=== PATIENT | female | born 1955 | race Caucasian/White ===

== ENCOUNTER 2017-07-31 11:23 | Emergency (ER) | payer OTHER ==
[2017-07-31 14:49] VITALS: BP 142/58
[2017-07-31] MEDS ORDERED: Tetracaine 0.5% OPTH.SOL 4 ML* 1 DROP BTL LEFT EYE ONE (15:01)
[2017-07-31] MEDS ORDERED: Eye Irrigation Solution 30 ML BOTTLE LEFT EYE ONE (15:01)
[2017-07-31] MEDS ORDERED: Fluorescein Sodium TOPICAL* 1 MG TEST OPHTHALMIC ONE (15:02)
--- NOTE | 2017-07-31 15:19 | UC ---
Eye Complaint HPI - HPI Summary HPI Summary: Pt c/o sudden onset of left eye pain. Pt denies injury, FB, discharge or swelling. - History of Current Complaint Chief Complaint: UCEye Stated Complaint: EYE COMPLAINT Time Seen by Provider: 07/31/17 14:36 Hx Obtained From: Patient ?: No Onset/Duration: Sudden Onset, Lasting Hours, Still Present Timing: Constant Severity Initially: Mild Severity Currently: Mild Pain Intensity: 2 Location of Injury: Eye Lid (upper) Character: Sharp, Dull Aggravating Factor(s): Nothing Alleviating Factor(s): Nothing Associated Signs And Symptoms: Positive: Drainage (Clear) - Risk Factors Penetrating Injury Risk Factor: Negative Globe Rupture Risk Factors: Negative Acute Glaucoma Risk Factors: Negative Optic Artery Occlusion Risk Factors: Negative - Allergies/Home Medications Allergies/Adverse Reactions: Allergies Allergy/AdvReac Type Severity Reaction Status Date / Time No Known Allergies Allergy Verified 07/31/17 14:36 Home Medications: Home Medications Levothyroxine TAB* [Synthroid 75 MCG TAB*] 75 mcg PO DAILY 07/31/17 [History Confirmed 07/31/17] PMH/Surg Hx/FS Hx/Imm Hx Previously Healthy: Yes Endocrine History: Thyroid Disease - Surgical History Surgical History: None Surgery Procedure, Year, and Place: left leg fx with plates and screws - Family History Known Family History: Positive: Cardiac Disease - Social History Occupation: Retired Lives: With Family Alcohol Use: Weekly Alcohol Amount: 4-5 Substance Use Type: None Smoking Status (MU): Former Smoker Have You Smoked in the Last Year: No When Did the Patient Quit Smoking/Using Tobacco: 1980s - Immunization History Most Recent Tetanus Shot: unknown Review of Systems Constitutional: Negative Skin: Negative Eyes: Blurred Vision - intermittent, Drainage - clear, Other - eye pain ENT: Negative Respiratory: Negative Cardiovascular: Negative Gastrointestinal: Negative Genitourinary: Negative Motor: Negative Neurovascular: Negative Musculoskeletal: Negative Neurological: Negative Psychological: Negative Is Patient Immunocompromised?: No All Other Systems Reviewed And Are Negative: Yes Physical Exam Triage Information Reviewed: Yes Appearance: Well-Appearing Vital Signs: Initial Vital Signs Temp 99.3 F 07/31/17 14:38 Pulse 62 07/31/17 14:38 Resp 18 07/31/17 14:38 BP 142/58 07/31/17 14:38 Pulse Ox 99 02/05/18 14:38 Vital Signs Reviewed: Yes Eye Exam: Other - no FB found with fluorocein stain, no corneal abrasion. Eyes: Positive: Conjunctiva Clear, Other: - mile swelling of lef jonathan eye lid ENT Exam: Normal Neck exam: Normal Respiratory Exam: Normal Cardiovascular Exam: Normal Musculoskeletal Exam: Normal Neurological Exam: Normal Psychological Exam: Normal Skin Exam: Normal Eye Complaint Course/Dx - Course Course Of Treatment: I discussed with the patient the consideration of shingles. Pt's eye exam did not reveal any abnormality. Pt c/o pain first, history of chicken pox and mild swelling of upper eye lid. No vessicles present. Pt was instructed to see her eye car eproviser as soon as possible. - Differential Dx/Diagnosis Differential Diagnosis/HQI/PQRI: Conjunctivitis, Corneal Abrasion, Foreign Body , Other - shingles Provider Diagnoses: left eye pain Discharge - Discharge Plan Condition: Stable Disposition: HOME Prescriptions: ValACYclovir (*) [Valtrex 1 GM(*)] 1 gm PO Q8H #21 tab Patient Education Materials: Eye Pain (ED) Referrals: Philip DAVIS,Tony Mabry [Primary Care Provider] - If Needed James Calderon MD [Medical Doctor] - As Soon As Possible
== END 2017-07-31 15:31 | disposition home or self-care (01) ==
LOC: UCCORT 11:23
DX: H57.12 Ocular pain, left eye (principal); Z87.891 Personal history of nicotine dependence
CPT/HCPCS: 99212; A9270-GY; G0463

== ENCOUNTER 2019-04-02 07:04 | Emergency (ER) | payer OTHER ==
[2019-04-02 07:37] VITALS: BP 152/65
--- NOTE | 2019-04-02 08:06 | UC ---
Respiratory Complaint HPI - HPI Summary HPI Summary: cough x 5 days cough is productive with yellow / green sputum + nasal congestion , pnd, no fever, no chills, no chest pain no sob cough is worse at night, worse with deep breathing - History of Current Complaint Chief Complaint: UCGeneralIllness Stated Complaint: COUGH X 4 DAYS Time Seen by Provider: 04/02/19 07:28 Hx Obtained From: Patient ?: No Onset/Duration: Gradual Onset, Lasting Days - 5, Still Present Timing: Constant Severity Initially: Moderate Severity Currently: Moderate Pain Intensity: 3 Pain Scale Used: 0-10 Numeric Character: Cough: Nonproductive Aggravating Factors: Exertion, Deep Breaths Associated Signs And Symptoms: Positive: URI, Nasal Congestion - Allergies/Home Medications Allergies/Adverse Reactions: Allergies Allergy/AdvReac Type Severity Reaction Status Date / Time No Known Allergies Allergy Verified 04/02/19 07:37 Home Medications: Home Medications FLUoxetine CAP* [PROzac CAP*] 10 mg PO DAILY 04/02/19 [History Confirmed ] PMH/Surg Hx/FS Hx/Imm Hx Endocrine History: Thyroid Disease - Surgical History Surgical History: Yes Surgery Procedure, Year, and Place: left leg fx with plates and screws - Family History Known Family History: Positive: Cardiac Disease - Social History Alcohol Use: Occasionally Alcohol Amount: 4-5 Substance Use Type: None Smoking Status (MU): Former Smoker Have You Smoked in the Last Year: No When Did the Patient Quit Smoking/Using Tobacco: 1980s - Immunization History Most Recent Tetanus Shot: unknown Review of Systems All Other Systems Reviewed And Are Negative: Yes Constitutional: Positive: Chills, Fatigue Skin: Positive: Negative Eyes: Positive: Negative ENT: Positive: Nasal Discharge, Sinus Congestion Respiratory: Positive: Cough. Negative: Shortness Of Breath Cardiovascular: Positive: Negative Is Patient Immunocompromised?: No Physical Exam Triage Information Reviewed: Yes Appearance: Well-Appearing, No Pain Distress, Well-Nourished Vital Signs: Initial Vital Signs Temp 98.2 F 04/02/19 07:30 Pulse 66 04/02/19 07:30 Resp 18 04/02/19 07:30 BP 152/65 04/02/19 07:30 Pulse Ox 98 04/02/19 07:30 Vital Signs Reviewed: Yes Eye Exam: Normal Eyes: Positive: Conjunctiva Clear ENT: Positive: Normal ENT inspection, Hearing grossly normal, Pharynx normal Neck: Positive: Supple, Nontender, No Lymphadenopathy Respiratory: Positive: Chest non-tender, Lungs clear, Normal breath sounds Cardiovascular: Positive: RRR, No Murmur, Pulses Normal Skin Exam: Normal Respiratory Course/Dx - Differential Dx/Diagnosis Provider Diagnosis: Viral bronchitis Discharge ED - Sign-Out/Discharge Documenting (check all that apply): Patient Departure All imaging exams completed and their final reports reviewed: No Studies - Discharge Plan Condition: Stable Disposition: HOME Prescriptions: guaiFENesin/CODIEN 100MG-10MG* [Robitussin AC 100Mg-10Mg*] 10 ml PO Q8H PRN # 120 ml MDD 30 ml PRN Reason: Cough Patient Education Materials: Acute Bronchitis (ED) Referrals: Tony Palacios PA [Primary Care Provider] - - Billing Disposition and Condition Condition: STABLE Disposition: Home
== END 2019-04-02 07:57 | disposition home or self-care (01) ==
LOC: UCCORT 07:04
DX: J20.8 Acute bronchitis due to other specified organisms (principal); E07.89 Other specified disorders of thyroid; Z87.891 Personal history of nicotine dependence
CPT/HCPCS: 99212; G0463

== ENCOUNTER 2019-07-01 08:27 | Emergency (ER) | payer OTHER ==
[2019-07-01 09:10] VITALS: BP 152/69
--- NOTE | 2019-07-01 09:44 | UC ---
Respiratory Complaint HPI - HPI Summary HPI Summary: 64 yo woman with a one week hx of sore throat, now resolved, and cough. Has no fever, shortness of breath or chest pain, but is unable to sleep the night through due to cough. Using Dayquil and Nyquil regularly. Feels fatigued. - History of Current Complaint Chief Complaint: UCRespiratory Stated Complaint: COUGH Time Seen by Provider: 07/01/19 09:35 Hx Obtained From: Patient Onset/Duration: Gradual Onset, Lasting Days Timing: Intermittent Episodes Severity Initially: Mild Severity Currently: Mild Pain Intensity: 0 Character: Cough: Productive Aggravating Factors: Recumbent Position Alleviating Factors: OTC Meds Associated Signs And Symptoms: Positive: URI. Negative: Dyspnea, Fever, Chills , Wheezing - Risk Factors Pulmonary Embolism Risk Factors: Negative Cardiac Risk Factors: Negative Pseudomonas Risk Factors: Negative Tuberculosis Risk Factors: Negative - Allergies/Home Medications Allergies/Adverse Reactions: Allergies Allergy/AdvReac Type Severity Reaction Status Date / Time No Known Allergies Allergy Verified 07/01/19 09:05 Home Medications: Home Medications Diphenhydram/PE/Dm/Acetamin/GG [MUCINEX FAST-MAX DAY/NIGH (Tablet)] 2 mis PO ONCE PRN 07/01/19 [History Confirmed 07/01/19] PMH/Surg Hx/FS Hx/Imm Hx Endocrine History: Hypothyroidism Psychological History: Anxiety - Surgical History Surgical History: Yes Surgery Procedure, Year, and Place: left leg fx with plates and screws - Family History Known Family History: Positive: Cardiac Disease, Other - mother has dementia - Social History Occupation: Retired Lives: With Family Alcohol Use: Weekly Alcohol Amount: 4-5 Substance Use Type: None Smoking Status (MU): Former Smoker Have You Smoked in the Last Year: No When Did the Patient Quit Smoking/Using Tobacco: 1980s - Immunization History Most Recent Tetanus Shot: unknown Review of Systems All Other Systems Reviewed And Are Negative: Yes Constitutional: Positive: Fatigue. Negative: Fever Skin: Positive: Negative Eyes: Positive: Negative ENT: Positive: Sore Throat Respiratory: Positive: Cough. Negative: Shortness Of Breath Cardiovascular: Negative: Palpitations, Chest Pain Gastrointestinal: Positive: Negative Genitourinary: Positive: Negative Motor: Positive: Negative Neurovascular: Positive: Negative Musculoskeletal: Positive: Negative Neurological: Positive: Negative Psychological: Positive: Negative Is Patient Immunocompromised?: No Physical Exam Triage Information Reviewed: Yes Appearance: Well-Appearing, No Pain Distress Vital Signs: Initial Vital Signs Temp 98.6 F 07/01/19 09:06 Pulse 61 07/01/19 09:06 Resp 16 07/01/19 09:06 BP 152/69 07/01/19 09:06 Pulse Ox 96 07/01/19 09:06 Eyes: Positive: Conjunctiva Clear ENT: Positive: Pharynx normal, TMs normal Neck: Positive: Supple, Nontender, No Lymphadenopathy Respiratory: Positive: Lungs clear, Normal breath sounds, No respiratory distress Cardiovascular: Positive: RRR, No Murmur Musculoskeletal Exam: Normal Neurological Exam: Normal Psychological Exam: Normal Skin Exam: Normal Respiratory Course/Dx - Course Course Of Treatment: Continue symptomatic treatment of viral URI. Cough suppressant for night use. - Differential Dx/Diagnosis Differential Diagnosis/HQI/PQRI: Bronchitis, Influenza, Lower Resp Infection, Sinusitis, Other - URI Provider Diagnosis: URI, acute Discharge ED - Sign-Out/Discharge Documenting (check all that apply): Patient Departure All imaging exams completed and their final reports reviewed: No Studies - Discharge Plan Condition: Good Disposition: HOME Prescriptions: Benzonatate CAP* [Tessalon 100 MG CAP*] 100 mg PO TID PRN #30 cap PRN Reason: Cough Codeine Phosphate/Guaifenesin [Guaifen-Codeine 100-10 mg/5 ml] 10 ml PO BID PRN #100 ml MDD 20 PRN Reason: Cough Patient Education Materials: Upper Respiratory Infection (ED) Referrals: Tony Palacios PA [Primary Care Provider] - Additional Instructions: Continue rest and high intake of fluids for treatment of viral respiratory infection. STOP dayquil and Nyquil and use tessalon perles for cough during the day, and codeine suppressant once or twice daily (it can cause sedation). follow up if you develop fever or shortness of breath. Today's blood pressure reading is elevated to 152/69. Please ensure that you have a follow up blood pressure check within 4 weeks. - Billing Disposition and Condition Condition: GOOD Disposition: Home
== END 2019-07-01 10:02 | disposition home or self-care (01) ==
LOC: UCCORT 08:27
DX: J06.9 Acute upper respiratory infection, unspecified (principal); Z87.891 Personal history of nicotine dependence
CPT/HCPCS: 99212; G0463